=== PATIENT | male | born 1975 | race Caucasian/White ===

== ENCOUNTER 2016-10-28 17:15 | Observation (INO) | payer OTHER ==
[~2016-10-28] VITALS: Ht 175.3 cm; Wt 101.9 kg
--- NOTE | 2016-10-28 17:48 | DIAGNOSTIC IMAGING REPORT ---
PROCEDURE: CT HEAD WITHOUT CONTRAST INDICATION: MENTAL STATUS CHANGE TECHNIQUE: Noncontrast axial images with sagittal and coronal reformations. COMPARISON: None. FINDINGS: Brain and ventricles are normal. No evidence of an acute process or hemorrhage. Sinuses and mastoids are normal. IMPRESSION: 1. Negative head CT. 2. Findings discussed with Dr. Rivera at [address] scans at this facility use dose modulation, iterative reconstruction, and/or weight-based dosing when appropriate to reduce radiation dose to as low as reasonably achievable.
--- NOTE | 2016-10-28 18:10 | DIAGNOSTIC IMAGING REPORT ---
PROCEDURE: XR CHEST 1 VIEW INDICATION: Code stroke. TECHNIQUE: Portable AP view (1750 hours). COMPARISON: None. FINDINGS: Allowing for rotation, and overlying wires and electrodes, lungs are clear. Heart and mediastinum are normal. Thorax is normal. IMPRESSION: 1. Negative chest.
--- NOTE | 2016-10-28 22:05 | ED ORDER SUMMARY ---
..... Patient: MARIA INES MURRAY OrderSheet [facility] VisitID: [id number] [place] [address] 41y, M Registration Date/Time: 10/28/2016 ORDER SHEET Weight: 97.5 kg (stated) Allergies: No Known Drug Allergy GENERAL ORDERS: CT Head wo Cont Urgent (17:29 10/28/2016 LSullivan R.N. verbal order read back to Patricia HUNT) (Ack 17:31 LTapper) (17:43 LSullivan R.N.) Chest 1V Urgent (17:45 10/28/2016 Patricia HUNT) (Ack 17:54 LTapper) (18:55 MCampbell) Gang Leader (Continuous) (17:45 10/28/2016 Patricia HUNT) (18:10 LWhalen R.N.) CBC w Diff Urgent (17:45 10/28/2016 Patricia HUNT) (Ack 17:54 LTapper) (18:10 LWhalen R.N.) CMP Urgent (17:45 10/28/2016 Patricia HUNT) (Ack 17:54 LTapper) (18:10 LWhalen R.N.) UA-Culture if indicated Urgent (17:45 10/28/2016 Patricia HUNT) (Ack 17:54 LTapper) PTT Urgent (17:45 10/28/2016 Patricia HUNT) (Ack 17:54 LTapper) (18:10 LWhalen R.N.) PT with INR Urgent (17:45 10/28/2016 Patricia HUNT) (Ack 17:54 LTapper) (18:10 LWhalen R.N.) Amylase Urgent (17:45 10/28/2016 Patricia HUNT) (Ack 17:54 LTapper) (18:10 LWhalen R.N.) Lipase Urgent (17:45 10/28/2016 Patricia HUNT) (Ack 17:54 LTapper) (18:10 LWhalen R.N.) CPK Urgent (17:45 10/28/2016 Patricia HUNT) (Ack 17:54 LTapper) (18:10 LWhalen R.N.) Troponin-I Urgent (17:45 10/28/2016 Patricia HUNT) (Ack 17:54 LTapper) (18:10 LWhalen R.N.) BNP Urgent (17:45 10/28/2016 Patricia HUNT) (Ack 17:54 LTapper) (18:10 LWhalen R.N.) Oxygen (2 L/min) (NC) (17:45 10/28/2016 Patricia HUNT) (18:10 LWhalen R.N.) Pulse oximeter (17:45 10/28/2016 Patricia HUNT) (18:10 LWhalen R.N.) EKG - ER Stat (17:45 10/28/2016 Patricia HUNT) (17:[facility] TSH Urgent (18:28 10/28/2016 Patricia HUNT) (Ack 18:33 LTapper) MEDICATION ORDERS: Meclizine PO 25 mg (NOW) (18:36 10/28/2016 Patricia HUNT) (19:47 DBeyer R.N.) Aspirin PO 325 mg (NOW) (19:57 10/28/2016 Patricia HUNT) (20:20 DBeyer R.N.) IV FLUIDS: Zofran IV 4 mg (NOW) (17:38 10/28/2016 LSullivan R.N. verbal order read back to Patricia HUNT) (17:40 LSullivan R.N.) IV Saline Lock (17:39 10/28/2016 LSullivan R.N. verbal order read back to Patricia HUNT) (17:40 LSullivan R.N.) IV Saline Lock (17:45 10/28/2016 Patricia HUNT) (18:10 LWhalen R.N.) IV NS with Normal Saline 1 Liter: initial bolus none -, then 1000 mL/hr for X1 (NOW) (18:13 10/28/2016 LSullivan R.N. verbal order read back to Patricia HUNT) (18:16 LSullivan R.N.) Protonix IVP 40mg 40 mg (Mix in NS 10ml over 2min) (20:22 10/28/2016 DBeyer R.N. verbal order read back to Patricia HUNT) (20:34 DBeyer R.N.) Zithromax IV 500 mg/250 mL (NOW) (22:02 10/28/2016 Patricia HUNT) (22:54 Marley Ventura) ORDER SHEET NOTES: [Electronically signed by Brendan Leonard R.N. (06:05 10/29/2016)] [Electronically signed by Nikolay Rivera MD (15:50 10/29/2016)] [Electronically locked/signed by Brendan Leonard R.N. (06:05 10/29/2016)]
--- NOTE | 2016-10-28 22:05 | ED NURSING NOTES ---
Clinical Report - Nurses [facility] [address] [place] [address] 10/28/2016 17:19 Patient: MARIA INES MURRAY TRIAGE Triage time 17:23. Chief Complaint: WEAKNESS, NUMBNESS and DIFFICULTY WALKING and (left side of face). 17:23 10/28/16. --17:23 Beatriz Benjamin R.N. Acuity: LEVEL 3. 17:26 10/28/16. Alert. --17:26 Beatriz Benjamin R.N. 17:30 10/28/16. ( TO CT). --17:30 Beatriz Benjamin R.N. 17:30 10/28/16. BP: 165/100. --17:30 Beatriz Benjamin R.N. 17:46 10/28/16. BP: 165/100. HR: 58. RR: 18. O2 saturation: 94%. Temp: 97.4 F. Pain level now: 810. Additional comments: "sinus headache". --17:48 Beatriz Benjamin R.N. Weight: 97.5 kg stated. Height/Length: 69 inches Per Patient. BMI: 31.8. --17:26 Beatriz Benjamin R.N. Medications Percocet Oral 5/325 mg, 4x a day as needed, back pain. --17:26 Beatriz Benjamin R.N. Allergies No Known Drug Allergy. --17:28 Beatriz Benjamin R.N. History Arrived by private vehicle. Historian: patient. Accompanied by family. --17:23 Beatriz Benjamin R.N. This started today. --17:25 Beatriz Benjamin R.N. ( CODE STROKE CALLED). --17:26 Beatriz Benjamin R.N. SOCIAL HX: Never smoker. Occasional alcohol use. No drug use. The patient was not exposed to MRSA. --17:30 Beatriz Benjamin R.N. 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 (and Advil). --17:31 Beatriz Benjamin R.N. ( states pt was just diagnosed with sinusitis, and had not started antibiotic yet, Amoxicillin for it.). --17:46 Beatriz Benjamin R.N. PROBLEMS: Bulging discs x 2. Bursitis right hip. Back Pain. --17:44 Beatriz Benjamin R.N. ADDITIONAL SURGERIES: Hernia Repair. --17:44 Beatriz Benjamin R.N. Sinus Surgery. --17:45 Beatriz Benjamin R.N. Interventions ID band on patient. To room. --17:26 Beatriz Benjamin R.N. PHYSICAL ASSESSMENT 17:41 10/28/16. GENERAL / NEURO / PSYCH: Decreased awareness. Mood/affect abnormal. --17:41 Beatriz Benjamin R.N. 17:46 10/28/16. GENERAL / NEURO / PSYCH: No motor deficit. ( Pt states he had "some chest pain" for 2 days). --17:46 Beatriz Benjamin R.N. NURSING PROGRESS NOTES 17:25 10/28/2016 Site #1 started via IV in the left hand with an 20g angiocath, with aseptic technique and good blood return; one attempt. Blood drawn: rainbow set. Labeled in the presence of the patient and sent to the lab. Saline lock flushed with 10 mL saline (started by HENRI Cui). --17:40 Beatriz Benjamin R.N. 17:35 10/28/2016 Zofran (Ondansetron HCl) IVP 4 mg given over 1 minute(s) via site #1. Allergies verified and confirmed 5 rights. (given in CT room). --17:40 Beatriz Benjamin R.N. 17:42 10/28/16. surveillance monitor, pulse oximeter and NIBP monitor placed on patient; monitoring manager- Lead II and V1; monitor alarms on. Patient identifiers checked. Call light placed in reach. Bed placed in lowest position. Brakes of bed on. Patient ready for evaluation. --17:42 Beatriz Benjamin R.N. EKG time: (6538). EKG was performed by a tech and shown to the ED physician. --17:50 Jenn Sykes 17:45 10/28/2016 Started bag #1 1000 mL IV Fluids IV NS (Saline); at 999 mL/hr via site #1 via IV pump. Confirmed 5 rights. --18:16 Beatriz Benjamin R.N. Care transferred and report received. ( report received from beatriz). --19:37 Brendan Leonard R.N. 19:37 10/28/16. HR: 53. O2 saturation: 99%. --19:37 Brendan Leonard R.N. 19:47 10/28/2016 Meclizine PO 25 mg given. Allergies verified, confirmed 5 rights and sedative warning given to the patient. --19:47 Brendan Leonard R.N. 19:47 10/28/2016 IV Fluids IV NS Discontinued: bag #1 completed. Total amount infused: 1000 mL. IV patency established. IV site checked: no pain, redness, or swelling. IV flushed thoroughly. --19:47 Brendan Leonard R.N. ( Pt attempted ambulation, was unsteady on his feet but able to walk with assistance.). --20:00 Brendan Leonard R.N. 19:59 10/28/16. BP: 132/66. HR: 60. O2 saturation: 96%. --20:00 Brendan Leonard R.N. <<STRICKEN ENTRY-- 20:20 10/28/2016 Aspirin PO 325 mg given. --20:20 Brendan Leonard R.N. --END STRIKE>> Correction. --20:20 Brendan Leonard R.N. 20:20 10/28/2016 Aspirin PO 325 mg given. Allergies verified and confirmed 5 rights. --20:20 Brendan Leonard R.N. 20:29 10/28/2016 PROTONIX (Pantoprazole Sodium) IVP 40 mg given over 10 minute(s) via site #1. Allergies verified and confirmed 5 rights. IV patency established. IV site checked: no pain, redness, or swelling. IV flushed thoroughly pre- and post-medication administration. IVP given by RN. --20:34 Brendan Leonard R.N. 21:41 10/28/16. BP: 135/81. HR: 62. O2 saturation: 94%. --21:42 Brendan Leonard R.N. 21:58 10/28/16. BP: 116/70. HR: 56. O2 saturation: 94%. --21:59 Brendan Leonard R.N. 22:54 10/28/2016 Started 250 mg of Zithromax (Azithromycin) IVPB in bag #1 250 mL; at 255 mL/hr over 1 hour(s) via site #1 via IV pump. Allergies verified and confirmed 5 rights. IV patency established. IV site checked: no pain, redness, or swelling. IV flushed thoroughly pre- and post-medication administration. --22:54 Brendan Leonard R.N. 23:02 10/28/2016 Site #[address] upon admission. Good blood return present. --23:02 Brendan Leonard R.N. DISPOSITION / DISCHARGE 22:58 10/28/16. BP: 130/78. HR: 61. RR: 20. O2 saturation: 96%. Temp: 98.4 F. Pain level now 5/10. --22:59 Brendan Leonard R.N. 22:58 10/28/16. Admitted to Acute Care. Report was given to a nurse via a phone call. All questions were answered. Report was acknowledged. ( Pt verbalized understanding of admission, GCS 15 at time of admission). --06:04 Brendan Leonard R.N. Locked/Released at 10/29/2016 6:05 by Brendan Leonard R.N.
--- NOTE | 2016-10-28 22:05 | ED CLINICAL REPORT ---
Clinical Report - Physicians/Mid Levels [facility] [address] [place] [address] 10/28/2016 17:19 [id number] Time Seen: 17:44. Arrived- By private vehicle. Historian- patient. History limited by vague historian. Physical Exam limited by poor cooperation. HISTORY OF PRESENT ILLNESS Chief Complaint: DIZZINESS and VERTIGO (ROOM). This started today and is still present. It was abrupt in onset and has been constant. Severity described as severe at its maximum. When seen in the E.D., severity described as severe. Described as a sense of rotation and movement, sense of falling and feeling off balance and light-headed. Not described as a sense of confusion. The patient has had nausea and vomiting. No hearing loss, tinnitus or ear pain. Similar symptoms previously: None. Recent medical care: The patient was seen recently at another facility in a clinic. Diagnosis: (sinusitis). ( he received a prescription for amoxicillin but has not yet started this.). REVIEW OF SYSTEMS The patient has had numbness of the left face (mild), (with pain). No chills, fever, abdominal pain, black stools or bloody stools. No constipation, diarrhea or urinary problems. He has experienced sweats. He complains of moderate, sharp, pleuritic central chest pain (since 2 days ago), currently moderate, described as radiating to the left arm. He has had palpitations (for 2 days). All systems otherwise negative, except as recorded above. PAST HISTORY ( PCP - Dr. Delong at [facility]). Problems: Bulging discs x 2. Bursitis right hip. Back Pain. Additional Surgeries: Hernia Repair. Sinus Surgery. Medications: Topiramate Oral. Percocet Oral 5/325 mg, 4x a day as needed, back pain. Allergies: No Known Drug Allergy. SOCIAL HISTORY Never smoker. No alcohol use or drug use. He lives with spouse. FAMILY HISTORY Diabetes in grandparent; cancer in first-degree relative (mother). ADDITIONAL NOTES The nursing notes have been reviewed. PHYSICAL EXAM Vital Signs: 10/28/2016 17:46 BP: 165/100. HR: 58. RR: 18. O2 saturation: 94%. Temp: 97.4 F. Pain level now: 06/01. 10/28/2016 17:30 BP: 165/100. Have been reviewed. Appearance: Alert. Eyes: Pupils equal, round and reactive to light. No nystagmus. Extraocular movements normal. ENT: Normal ENT inspection. TM's normal. Moist mucous membranes. Pharynx normal. Neck: Normal inspection. Neck supple. No meningeal signs or carotid bruit. CVS: Normal heart rate and rhythm. Heart sounds normal. Respiratory: No respiratory distress. Breath sounds normal. Abdomen: Soft and nontender. No organomegaly. Obese. Back: Normal inspection. Skin: Skin warm and dry. Normal skin color. Normal skin turgor. Extremities: Extremities exhibit normal ROM. No calf tenderness. No lower extremity edema. Neuro: Alert. The patient is disoriented to time. Cranial nerves normal (as tested). Abnormal gait due to mild ataxia. No motor deficit. No sensory deficit. LABS, X-RAYS, AND EKG EKG: No acute process. Rate: 59. Prior EKG unavailable. The study has been independently viewed by me. Chest X-ray: Normal Chest X-Ray. CT Head: (IMPRESSION: 1. Negative head CT.). The study was interpreted by the radiologist and contemporaneously by me. Laboratory Tests: CBC w Diff: (CECI: 10/28/2016 17:25) ( MsgRcvd 10/28/2016 17:53) Final results Test Result Flag Units (Reference) WHITE BLOOD COUNT 12.5 H K/uL (4.5-11.5) RED BLOOD COUNT 5.71 M/uL (4.50-5.90) HEMOGLOBIN 16.7 gm/dL (13.5-17.5) HEMATOCRIT 50.6 % (41.0-53.0) MEAN CELL VOLUME 89 fL (80-100) MEAN CORPUSCULAR HGB 29 pg (26-34) MEAN CORPUSCULAR HGB CONC 33 g/dL (31-37) RED CELL DISTRIBUTION WIDTH 12.9 % (11.6-14.8) PLATELET COUNT 306 K/uL (150-400) NEUTROPHIL % 56.1 % (50-75) LYMPH % 33.7 % (25-40) MONO % 8.8 % (3-14) EOSINOPHIL % 0.7 % (0-4) BASOPHIL % 0.7 % (0-2) PT with INR: (CECI: 10/28/2016 17:25) ( [facility] 10/28/2016 17:59) Final results Test Result Flag Units (Reference) INR 1.0 (0.8-1.2) Low Intensity Therapy: INR 1.5-2.0 PT range 18.5-23.1Mod.Intensity Therapy: INR 2.0-3.0 PT range 23.1-31.5High Intensity Therapy: INR 2.5-3.5 PT range 27.4-35.5High Intensity Therapy 2: INR 3.0-4.0 PT range 31.5-39.3 APTT 25 SECONDS (24-34) TSH: (CECI: 10/28/2016 17:25) ( [facility] 10/28/2016 19:01) Final results Test Result Flag Units (Reference) THYROID STIMULATING HORMONE 0.440 uIU/mL (0.34-3.74) BNP: (CECI: 10/28/2016 17:25) ( [facility] 10/28/2016 18:16) Final results Test Result Flag Units (Reference) B-TYPE NATRIURETIC PEPTIDE < 5.0 L pg/ml (5-100) CMP: (CECI: 10/28/2016 17:25) ( [facility] 10/28/2016 18:10) Final results Test Result Flag Units (Reference) GLUCOSE 164 H mg/dL (70-110) BUN 25 H mg/dL (7-18) CREATININE 1.2 mg/dL (0.6-1.3) Estimated GFR >60 mL/min Estimated GFR- >60 mL/min Note: Persistent reduction over 3 months in eGFR<60 mL/min/1.73 m2 defines CKD. Patients with eGFR values>=60 mL/min/1.73 m2 may also have CKD if evidence ofpersistent proteinuria. Additional information may be foundat www.kidney.org. SODIUM 141 mmol/L (136-145) POTASSIUM 3.5 mmol/L (3.5-5.1) CHLORIDE 107 mmol/L (98-107) CARBON DIOXIDE 22 mmol/L (21-32) CALCIUM 9.1 mg/dL (8.5-10.1) TOTAL PROTEIN 7.4 g/dL (6.4-8.2) ALBUMIN 4.0 g/dL (3.3-5.0) BILIRUBIN, TOTAL 0.5 mg/dL (0.0-1.0) ALKALINE PHOSPHATASE 51 U/L (46-116) AST (SGOT) 26 U/L (15-37) ALT (SGPT) 63 U/L (12-78) LIPASE 122 U/L (73-393) AMYLASE 59 U/L (25-115) CPK 72 U/L (24-260) TROPONIN I <0.05 L ng/mL (0.00-1.5) TROPONIN REFERENCE RANGE:<0.1 NEGATIVE0.1-1.5 INDETERMINANT>1.5 POSITIVE . PROGRESS AND PROCEDURES Course of Care: Walk test was attempted with the patient. Staff assisted him. He would list to the left when ambulating. However he was able to stand without difficulty.Given that he had no improvement, I spoke with Dr. Steinberg, the education teacher physician and reviewed his history and exam findings. We will admit the patient for observation and will obtain an MRI in the AM. Patient is stable. The patient's symptoms are unchanged. Vital signs have been reviewed. Physical exam findings are unchanged. Discussed case with on-call health care provider, (Sp Delong). Reviewed test results and need for additional work-up. Agreed upon treatment plan and need for patient follow-up. Health care provider will see patient in office. Consult obtained. Dr. Steinberg - he saw the patient in the emergency room. Case discussed. Consultation performed in ED. Patient/family counseled. Old medical records ordered. Disposition: Admitted. Observation. Condition: stable. CLINICAL IMPRESSION Vertigo of unknown cause. Possible nontraumatic cerebrovascular accident. INSTRUCTIONS No driving or operating machinery while taking medication. Sedative medication was given during your visit. (Electronically signed by Nikolay Rivera MD 10/29/2016 15:50)
--- NOTE | 2016-10-28 22:05 | ED ORDER SUMMARY ---
..... Patient: MARIA INES MURRAY OrderSheet [facility] VisitID: [id number] [place] [address] 41y, M Registration Date/Time: 10/28/2016 ORDER SHEET Weight: 97.5 kg (stated) Allergies: No Known Drug Allergy GENERAL ORDERS: CT Head wo Cont Urgent (17:29 10/28/2016 LSullivan R.N. verbal order read back to Patricia HUNT) (Ack 17:31 LTapper) (17:43 LSullivan R.N.) Chest 1V Urgent (17:45 10/28/2016 Patricia HUNT) (Ack 17:54 LTapper) (18:55 MCampbell) Pigment Presser (Continuous) (17:45 10/28/2016 Patricia HUNT) (18:10 LWhalen R.N.) CBC w Diff Urgent (17:45 10/28/2016 Patricia HUNT) (Ack 17:54 LTapper) (18:10 LWhalen R.N.) CMP Urgent (17:45 10/28/2016 Patricia HUNT) (Ack 17:54 LTapper) (18:10 LWhalen R.N.) UA-Culture if indicated Urgent (17:45 10/28/2016 Patricia HUNT) (Ack 17:54 LTapper) PTT Urgent (17:45 10/28/2016 Patricia HUNT) (Ack 17:54 LTapper) (18:10 LWhalen R.N.) PT with INR Urgent (17:45 10/28/2016 Patricia HUNT) (Ack 17:54 LTapper) (18:10 LWhalen R.N.) Amylase Urgent (17:45 10/28/2016 Patricia HUNT) (Ack 17:54 LTapper) (18:10 LWhalen R.N.) Lipase Urgent (17:45 10/28/2016 Patricia HUNT) (Ack 17:54 LTapper) (18:10 LWhalen R.N.) CPK Urgent (17:45 10/28/2016 Patricia HUNT) (Ack 17:54 LTapper) (18:10 LWhalen R.N.) Troponin-I Urgent (17:45 10/28/2016 Patricia HUNT) (Ack 17:54 LTapper) (18:10 LWhalen R.N.) BNP Urgent (17:45 10/28/2016 Patricia HUNT) (Ack 17:54 LTapper) (18:10 LWhalen R.N.) Oxygen (2 L/min) (NC) (17:45 10/28/2016 Patricia HUNT) (18:10 LWhalen R.N.) Pulse oximeter (17:45 10/28/2016 Patricia HUNT) (18:10 LWhalen R.N.) EKG - ER Stat (17:45 10/28/2016 Patricia HUNT) ([facility] TSH Urgent (18:28 10/28/2016 Patricia HUNT) (Ack 18:33 LTapper) MEDICATION ORDERS: Meclizine PO 25 mg (NOW) (18:36 10/28/2016 Patricia HUNT) (19:47 DBeyer R.N.) Aspirin PO 325 mg (NOW) (19:57 10/28/2016 Patricia HUNT) (20:20 DBeyer R.N.) IV FLUIDS: Zofran IV 4 mg (NOW) (17:38 10/28/2016 LSullivan R.N. verbal order read back to Patricia HUNT) (17:40 LSullivan R.N.) IV Saline Lock (17:39 10/28/2016 LSullivan R.N. verbal order read back to Patricia HUNT) (17:40 LSullivan R.N.) IV Saline Lock (17:45 10/28/2016 Patricia HUNT) (18:10 LWhalen R.N.) IV NS with Normal Saline 1 Liter: initial bolus none -, then 1000 mL/hr for X1 (NOW) (18:13 10/28/2016 LSullivan R.N. verbal order read back to Patricia HUNT) (18:16 LSullivan R.N.) Protonix IVP 40mg 40 mg (Mix in NS 10ml over 2min) (20:22 10/28/2016 DBeyer R.N. verbal order read back to Patricia HUNT) (20:34 DBeyer R.N.) Zithromax IV 500 mg/250 mL (NOW) (22:02 10/28/2016 Patricia HUNT) (22:54 Marley Ventura) ORDER SHEET NOTES: [Electronically signed by Brendan Leonard R.N. (06:05 10/29/2016)] [Electronically signed by Nikolay Rivera MD (15:50 10/29/2016)] [Electronically locked/signed by Brendan Leonard R.N. (06:05 10/29/2016)]
--- NOTE | 2016-10-28 22:05 | ED NURSING NOTES ---
Clinical Report - Nurses [facility] [address] [place] [address] 10/28/2016 17:19 Patient: MARIA INES MURRAY TRIAGE Triage time 17:23. Chief Complaint: WEAKNESS, NUMBNESS and DIFFICULTY WALKING and (left side of face). 17:23 10/28/16. --17:23 Beatriz Benjamin R.N. Acuity: LEVEL 3. 17:26 10/28/16. Alert. --17:26 Beatriz Benjamin R.N. 17:30 10/28/16. ( TO CT). --17:30 Beatriz Benjamin R.N. 17:30 10/28/16. BP: 165/100. --17:30 Beatriz Benjamin R.N. 17:46 10/28/16. BP: 165/100. HR: 58. RR: 18. O2 saturation: 94%. Temp: 97.4 F. Pain level now: 810. Additional comments: "sinus headache". --17:48 Beatriz Benjamin R.N. Weight: 97.5 kg stated. Height/Length: 69 inches Per Patient. BMI: 31.8. --17:26 Beatriz Benjamin R.N. Medications Percocet Oral 5/325 mg, 4x a day as needed, back pain. --17:26 Beatriz Benjamin R.N. Allergies No Known Drug Allergy. --17:28 Beatriz Benjamin R.N. History Arrived by private vehicle. Historian: patient. Accompanied by family. --17:23 Beatriz Benjamin R.N. This started today. --17:25 Beatriz Benjamin R.N. ( CODE STROKE CALLED). --17:26 Beatriz Benjamin R.N. SOCIAL HX: Never smoker. Occasional alcohol use. No drug use. The patient was not exposed to MRSA. --17:30 Beatriz Benjamin R.N. 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 (and Advil). --17:31 Beatriz Benjamin R.N. ( states pt was just diagnosed with sinusitis, and had not started antibiotic yet, Amoxicillin for it.). --17:46 Beatriz Benjamin R.N. PROBLEMS: Bulging discs x 2. Bursitis right hip. Back Pain. --17:44 Beatriz Benjamin R.N. ADDITIONAL SURGERIES: Hernia Repair. --17:44 Beatriz Benjamin R.N. Sinus Surgery. --17:45 Beatriz Benjamin R.N. Interventions ID band on patient. To room. --17:26 Beatriz Benjamin R.N. PHYSICAL ASSESSMENT 17:41 10/28/16. GENERAL / NEURO / PSYCH: Decreased awareness. Mood/affect abnormal. --17:41 Beatriz Benjamin R.N. 17:46 10/28/16. GENERAL / NEURO / PSYCH: No motor deficit. ( Pt states he had "some chest pain" for 2 days). --17:46 Beatriz Benjamin R.N. NURSING PROGRESS NOTES 17:25 10/28/2016 Site #1 started via IV in the left hand with an 20g angiocath, with aseptic technique and good blood return; one attempt. Blood drawn: rainbow set. Labeled in the presence of the patient and sent to the lab. Saline lock flushed with 10 mL saline (started by HERNI Cui). --17:40 Beatriz Benjamin R.N. 17:35 10/28/2016 Zofran (Ondansetron HCl) IVP 4 mg given over 1 minute(s) via site #1. Allergies verified and confirmed 5 rights. (given in CT room). --17:40 Beatriz Benjamin R.N. 17:42 10/28/16. starcher and tenter range feeder, pulse oximeter and NIBP monitor placed on patient; research environmental scientist- Lead II and V1; monitor alarms on. Patient identifiers checked. Call light placed in reach. Bed placed in lowest position. Brakes of bed on. Patient ready for evaluation. --17:42 Beatriz Benjamin R.N. EKG time: (9658). EKG was performed by a tech and shown to the ED physician. --17:50 Jenn Sykes 17:45 10/28/2016 Started bag #1 1000 mL IV Fluids IV NS (Saline); at 999 mL/hr via site #1 via IV pump. Confirmed 5 rights. --18:16 Beatriz Benjamin R.N. Care transferred and report received. ( report received from beatriz). --19:37 Brendan Loenard R.N. 19:37 10/28/16. HR: 53. O2 saturation: 99%. --19:37 Brendan Leonard R.N. 19:47 10/28/2016 Meclizine PO 25 mg given. Allergies verified, confirmed 5 rights and sedative warning given to the patient. --19:47 Brendan Leonard R.N. 19:47 10/28/2016 IV Fluids IV NS Discontinued: bag #1 completed. Total amount infused: 1000 mL. IV patency established. IV site checked: no pain, redness, or swelling. IV flushed thoroughly. --19:47 Brendan Leonard R.N. ( Pt attempted ambulation, was unsteady on his feet but able to walk with assistance.). --20:00 Brendan Leonard R.N. 19:59 10/28/16. BP: 132/66. HR: 60. O2 saturation: 96%. --20:00 Brendan Leonard R.N. <<STRICKEN ENTRY-- 20:20 10/28/2016 Aspirin PO 325 mg given. --20:20 Brendan Leonard R.N. --END STRIKE>> Correction. --20:20 Brendan Leonard R.N. 20:20 10/28/2016 Aspirin PO 325 mg given. Allergies verified and confirmed 5 rights. --20:20 Brendan Leonard R.N. 20:29 10/28/2016 PROTONIX (Pantoprazole Sodium) IVP 40 mg given over 10 minute(s) via site #1. Allergies verified and confirmed 5 rights. IV patency established. IV site checked: no pain, redness, or swelling. IV flushed thoroughly pre- and post-medication administration. IVP given by RN. --20:34 Brendan Leonard R.N. 21:41 10/28/16. BP: 135/81. HR: 62. O2 saturation: 94%. --21:42 Brendan Leonard R.N. 21:58 10/28/16. BP: 116/70. HR: 56. O2 saturation: 94%. --21:59 Brendan Leonard R.N. 22:54 10/28/2016 Started 250 mg of Zithromax (Azithromycin) IVPB in bag #1 250 mL; at 255 mL/hr over 1 hour(s) via site #1 via IV pump. Allergies verified and confirmed 5 rights. IV patency established. IV site checked: no pain, redness, or swelling. IV flushed thoroughly pre- and post-medication administration. --22:54 Brendan Leonard R.N. 23:02 10/28/2016 Site #[address] upon admission. Good blood return present. --23:02 Brendan Leonard R.N. DISPOSITION / DISCHARGE 22:58 10/28/16. BP: 130/78. HR: 61. RR: 20. O2 saturation: 96%. Temp: 98.4 F. Pain level now 5/10. --22:59 Brendan Leonard R.N. 22:58 10/28/16. Admitted to Acute Care. Report was given to a nurse via a phone call. All questions were answered. Report was acknowledged. ( Pt verbalized understanding of admission, GCS 15 at time of admission). --06:04 Brendan Leonard R.N. Locked/Released at 10/29/2016 6:05 by Brendan Leonard R.N.
--- NOTE | 2016-10-28 22:05 | ED CLINICAL REPORT ---
Clinical Report - Physicians/Mid Levels [facility] [address] [place] [address] 10/28/2016 17:19 [id number] Time Seen: 17:44. Arrived- By private vehicle. Historian- patient. History limited by vague historian. Physical Exam limited by poor cooperation. HISTORY OF PRESENT ILLNESS Chief Complaint: DIZZINESS and VERTIGO (ROOM). This started today and is still present. It was abrupt in onset and has been constant. Severity described as severe at its maximum. When seen in the E.D., severity described as severe. Described as a sense of rotation and movement, sense of falling and feeling off balance and light-headed. Not described as a sense of confusion. The patient has had nausea and vomiting. No hearing loss, tinnitus or ear pain. Similar symptoms previously: None. Recent medical care: The patient was seen recently at another facility in a clinic. Diagnosis: (sinusitis). ( he received a prescription for amoxicillin but has not yet started this.). REVIEW OF SYSTEMS The patient has had numbness of the left face (mild), (with pain). No chills, fever, abdominal pain, black stools or bloody stools. No constipation, diarrhea or urinary problems. He has experienced sweats. He complains of moderate, sharp, pleuritic central chest pain (since 2 days ago), currently moderate, described as radiating to the left arm. He has had palpitations (for 2 days). All systems otherwise negative, except as recorded above. PAST HISTORY ( PCP - Dr. Delong at [facility]). Problems: Bulging discs x 2. Bursitis right hip. Back Pain. Additional Surgeries: Hernia Repair. Sinus Surgery. Medications: Topiramate Oral. Percocet Oral 5/325 mg, 4x a day as needed, back pain. Allergies: No Known Drug Allergy. SOCIAL HISTORY Never smoker. No alcohol use or drug use. He lives with spouse. FAMILY HISTORY Diabetes in grandparent; cancer in first-degree relative (mother). ADDITIONAL NOTES The nursing notes have been reviewed. PHYSICAL EXAM Vital Signs: 10/28/2016 17:46 BP: 165/100. HR: 58. RR: 18. O2 saturation: 94%. Temp: 97.4 F. Pain level now: 06/01. 10/28/2016 17:30 BP: 165/100. Have been reviewed. Appearance: Alert. Eyes: Pupils equal, round and reactive to light. No nystagmus. Extraocular movements normal. ENT: Normal ENT inspection. TM's normal. Moist mucous membranes. Pharynx normal. Neck: Normal inspection. Neck supple. No meningeal signs or carotid bruit. CVS: Normal heart rate and rhythm. Heart sounds normal. Respiratory: No respiratory distress. Breath sounds normal. Abdomen: Soft and nontender. No organomegaly. Obese. Back: Normal inspection. Skin: Skin warm and dry. Normal skin color. Normal skin turgor. Extremities: Extremities exhibit normal ROM. No calf tenderness. No lower extremity edema. Neuro: Alert. The patient is disoriented to time. Cranial nerves normal (as tested). Abnormal gait due to mild ataxia. No motor deficit. No sensory deficit. LABS, X-RAYS, AND EKG EKG: No acute process. Rate: 59. Prior EKG unavailable. The study has been independently viewed by me. Chest X-ray: Normal Chest X-Ray. CT Head: (IMPRESSION: 1. Negative head CT.). The study was interpreted by the radiologist and contemporaneously by me. Laboratory Tests: CBC w Diff: (CECI: 10/28/2016 17:25) ( MsgRcvd 10/28/2016 17:53) Final results Test Result Flag Units (Reference) WHITE BLOOD COUNT 12.5 H K/uL (4.5-11.5) RED BLOOD COUNT 5.71 M/uL (4.50-5.90) HEMOGLOBIN 16.7 gm/dL (13.5-17.5) HEMATOCRIT 50.6 % (41.0-53.0) MEAN CELL VOLUME 89 fL (80-100) MEAN CORPUSCULAR HGB 29 pg (26-34) MEAN CORPUSCULAR HGB CONC 33 g/dL (31-37) RED CELL DISTRIBUTION WIDTH 12.9 % (11.6-14.8) PLATELET COUNT 306 K/uL (150-400) NEUTROPHIL % 56.1 % (50-75) LYMPH % 33.7 % (25-40) MONO % 8.8 % (3-14) EOSINOPHIL % 0.7 % (0-4) BASOPHIL % 0.7 % (0-2) PT with INR: (CECI: 10/28/2016 17:25) ( [facility] 10/28/2016 17:59) Final results Test Result Flag Units (Reference) INR 1.0 (0.8-1.2) Low Intensity Therapy: INR 1.5-2.0 PT range 18.5-23.1Mod.Intensity Therapy: INR 2.0-3.0 PT range 23.1-31.5High Intensity Therapy: INR 2.5-3.5 PT range 27.4-35.5High Intensity Therapy 2: INR 3.0-4.0 PT range 31.5-39.3 APTT 25 SECONDS (24-34) TSH: (CECI: 10/28/2016 17:25) ( [facility] 10/28/2016 19:01) Final results Test Result Flag Units (Reference) THYROID STIMULATING HORMONE 0.440 uIU/mL (0.34-3.74) BNP: (CECI: 10/28/2016 17:25) ( [facility] 10/28/2016 18:16) Final results Test Result Flag Units (Reference) B-TYPE NATRIURETIC PEPTIDE < 5.0 L pg/ml (5-100) CMP: (CECI: 10/28/2016 17:25) ( [facility] 10/28/2016 18:10) Final results Test Result Flag Units (Reference) GLUCOSE 164 H mg/dL (70-110) BUN 25 H mg/dL (7-18) CREATININE 1.2 mg/dL (0.6-1.3) Estimated GFR >60 mL/min Estimated GFR- >60 mL/min Note: Persistent reduction over 3 months in eGFR<60 mL/min/1.73 m2 defines CKD. Patients with eGFR values>=60 mL/min/1.73 m2 may also have CKD if evidence ofpersistent proteinuria. Additional information may be foundat www.kidney.org. SODIUM 141 mmol/L (136-145) POTASSIUM 3.5 mmol/L (3.5-5.1) CHLORIDE 107 mmol/L (98-107) CARBON DIOXIDE 22 mmol/L (21-32) CALCIUM 9.1 mg/dL (8.5-10.1) TOTAL PROTEIN 7.4 g/dL (6.4-8.2) ALBUMIN 4.0 g/dL (3.3-5.0) BILIRUBIN, TOTAL 0.5 mg/dL (0.0-1.0) ALKALINE PHOSPHATASE 51 U/L (46-116) AST (SGOT) 26 U/L (15-37) ALT (SGPT) 63 U/L (12-78) LIPASE 122 U/L (73-393) AMYLASE 59 U/L (25-115) CPK 72 U/L (24-260) TROPONIN I <0.05 L ng/mL (0.00-1.5) TROPONIN REFERENCE RANGE:<0.1 NEGATIVE0.1-1.5 INDETERMINANT>1.5 POSITIVE . PROGRESS AND PROCEDURES Course of Care: Walk test was attempted with the patient. Staff assisted him. He would list to the left when ambulating. However he was able to stand without difficulty.Given that he had no improvement, I spoke with Dr. Steinberg, the economic analyst physician and reviewed his history and exam findings. We will admit the patient for observation and will obtain an MRI in the AM. Patient is stable. The patient's symptoms are unchanged. Vital signs have been reviewed. Physical exam findings are unchanged. Discussed case with on-call health care provider, (Sp Delong). Reviewed test results and need for additional work-up. Agreed upon treatment plan and need for patient follow-up. Health care provider will see patient in office. Consult obtained. Dr. Steinberg - he saw the patient in the emergency room. Case discussed. Consultation performed in ED. Patient/family counseled. Old medical records ordered. Disposition: Admitted. Observation. Condition: stable. CLINICAL IMPRESSION Vertigo of unknown cause. Possible nontraumatic cerebrovascular accident. INSTRUCTIONS No driving or operating machinery while taking medication. Sedative medication was given during your visit. (Electronically signed by Nikolay Rivera MD 10/29/2016 15:50)
--- NOTE | 2016-10-28 22:46 | Progress Note ---
Subjective General Full note dictated: Patient is a 41 y.o male generally healthy other than some chronic neck pain who presented with n/v/dizziness, face numbness L and body numbness right. CT neg, difficulty walking. Plan: admit to the hospital for MRI r/o CVA, IVF, nausea and gerd treatment.
[2016-10-28 23:34] VITALS: BP 151/92
--- NOTE | 2016-10-28 23:59 | HISTORY AND PHYSICAL ---
ADMITTED: 10/28/2016 CHIEF COMPLAINT: 1. Left face numbness 2. Right body numbness 3. Dizziness 4. Nausea 5. Vomiting HISTORY OF PRESENT ILLNESS: The patient states that he awoke at 4:00 today after sleeping for around 16 hours, at which point, he noticed that he was acutely ill with this left face numbness, difficult vision out of the left eye, and right side of his body feeling numb. He was also extremely dizzy and so he went to the emergency department for further evaluation. In the emergency department, a large workup was done, which was essentially negative. His physical examination does have significant nystagmus and he also has the continued issues of numbness. He is being admitted for a rule out cerebrovascular accident. Check on an MRI in the morning and we will also monitor his symptoms and treat his symptoms at this time pending further evaluation. MEDICAL/SURGICAL HISTORY: Past medical history: He has generally been healthy. He sees Dr. Delong at [facility]. He has had some diskitis, bursitis and back pain. Past surgical history: He has had hernia and sinus surgery. MEDICATIONS: 1. Pataday 0.2% ophthalmic solution, 1 drop both eyes daily for allergies. 2. Fluticasone 2 sprays each nostril daily. 3. Methylphenidate 30 mg p.o. daily for attention deficit disorder. 4. Venlafaxine 75 mg p.o. daily for anxiety, depression. 5. Oxycodone 1-2 q.4-6 hours p.r.n. pain. 6. Nexium 1 p.o. daily. 7. Multivitamin p.o. daily. ALLERGIES: 1. NONE. SOCIAL HISTORY: . He does not smoke, does not drink, does not use any drugs. FAMILY HISTORY: Diabetes in grandfather. Mom had thyroid cancer. REVIEW OF SYSTEMS: Notable for the left face numbness, right arm numbness, the left vision difficulty. He is leaning a little bit to the left when he walks, which is new, and difficulty with walking. He has extreme dizziness, nausea, vomiting. No bleeding anywhere. He has a little bit of chest discomfort when you press on his left lower chest. Also, he has bilateral lower leg calf tenderness. PHYSICAL EXAMINATION: GENERAL: He is an alert male who appears to be in [id number] distress. HEENT: His extraocular movements are intact; however, he has got nystagmus both laterally and vertically in movement in any direction. He has got some sinus tenderness, both to the left anterior frontal area, as well as left maxillary region. He has got subjective facial numbness from midline over to the left-hand side, ends up to the cheek from his chin. NECK: Supple without lymphadenopathy, jugular venous distention or bruits. LUNGS: Clear to auscultation bilaterally. HEART: Regular rate and rhythm. No murmur. ABDOMEN: Soft. It is tender to palpation in the left lower abdomen. His left chest also has a little bit of tenderness to palpation. GENITOURINARY: Deferred. RECTAL: Deferred. NEUROLOGIC: His cranial nerves are intact other than as noted. His legs have no edema. He is mildly tender posteriorly in his calves bilaterally. LAB/IMAGING: EKG was normal. Chest x-ray was normal. CT of his head: Normal. Laboratories: White count of 12.5, hematocrit of 50.6 and platelets of 306,000. INR of 1.0. Sodium of 141, potassium 3.5, chloride of 107, HCO3 22, BUN of 25, creatinine 1.2, glucose 164, calcium 9.1, bili 0.5, protein of 7.4. AST of 26, ALT of 63, alk phos 51, albumin 4.0, amylase 59, lipase 122. Creatinine kinase 72. Troponin less than 0.05. BNP less than 5. TSH is 0.440. Urinalysis is unremarkable. IMPRESSION: 1. This is a 41-year-old male who presents with acute onset of left face numbness with some vision changes on the left, difficulty with ambulation and right body numbness. He has also had nystagmus, extreme dizziness, nausea, vomiting. His workup essentially is negative other than his physical examination and he has got enough disability with his inability to walk, etc., that we are going to admit him. Check on an MRI of his brain. He would not be a candidate for TPA as his last known time of being well prior to waking was over 12 hours and time to get in to the emergency department, etc., now it has been well longer than that. With this, he might be having some sinus related issues with tenderness, as well as he may be having vestibulitis with the dizziness causing nausea, etc. there are some other findings including some of the calf tenderness and abdominal discomfort, chest wall tenderness are all a little bit unusual at this point. PLAN: To admit him to the hospital and check on the MRI of his brain and monitor him closely, treat with antiemetics, as well as acid medicines.
--- NOTE | 2016-10-29 00:07 | NUR ---
PT ADMITTED TO 209-B. HE WAS ORIENTED BUT LETHARGIC, UNABLE TO AMBULATE TO BED, WEAK WHEN STANDING TO PIVOT INTO BED. PT C/O NUMBNESS TO LEFT SIDE OF FACE AND WEAKNESS/NUMBNESS TO R UPPER EXTREMITIES. 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 PT C/O HEARTBURN, EMESIS PRESENT. AT BEDSIDE. SHE IS UNSURE OF PT'S HOME MED DOSEAGES AT THIS TIME. BED ALARM ON, PT WILL BE NPO AT THIS TIME. AXYTHROMYCIN BEING GIVEN FROM ED.
[2016-10-29 02:26] VITALS: BP 132/87
--- NOTE | 2016-10-29 02:31 | NUR ---
PT. CARE ASSUMED AT 2300. PT. REPORTS HAVING HEART BURN PAIN, HAD PRN LIQUID PO MEDICATION BUT STATES HE IS CHOKING ON ANYTHING PO. NOTIFIED MD, OKAY TO GIVE PROTONIX EARLY, MAKE NPO AND ORDER SWALLOW EVAL FOR A.M. PATIENT IS ALERT AND ORIENTED, COOPERATIVE WITH CARES. L SIDED WEAKNESS AND FACIAL DROOP. PER BASELINE HAS CHRONIC LOW BACK NERVE PAIN FROM BULGING DISC. PT. UNABLE TO AMBULATE, WAFFLE MATRESS IN PLACE, USES CALL LIGHT APPROPRIATELY AND ABLE TO MAKE NEEDS KNOWN. COUGHING UP CLEAR THIN SPUTUM FREQUENTLY. SCD'S IN PLACE. WCTM
[2016-10-29] MEDS ORDERED: TOPAMAX100 MG PO (02:41)
[2016-10-29] MEDS ORDERED: PERCOCET1 TA1 PO (02:41)
--- NOTE | 2016-10-29 03:13 | NUR ---
CHRISTELLE LICEA IN PLACE, BED ALARM ON, DR. SAMSON AT PATIENT BEDSIDE AT THIS TIME
--- NOTE | 2016-10-29 03:41 | Progress Note ---
Subjective General Called to evaluate patient for change in pupils. Nursing staff had evaluated him and he was with a dilated pupil on the L and facing downward. When I arrived on the floor he was improved on his eval. I then called the [facility] stroke team attending and they have requested that I order a stat CTA of patients brain and neck, give asa rectally, and 1L NS. Patient also is noted to have urinary retention with 540 ml. Physical Exam Vital Signs / I&Os Vital Signs Date Time Temp Pulse Resp B/P Pulse O2 O2 Flow FiO2 Ox Delivery Rate 10/29 0226 98.4 67 18 132/87 93 Room Air 0.0 10/29 0005 Room Air 10/28 2334 98.4 72 20 151/92 94 Room Air 0.0 I&O 10/29 0000 10/28 1600 10/28 0800 Intake Total Output Total 15 Balance -15 General Appearance Alert HEENT patient has some nystagmus, pupils are reactive and eomi, he as some subjective decrease in vision on the L Lungs Clear to auscultation Cardiovascular Regular rate and rhythm LAB Results Laboratory Tests 10/28 10/28 10/28 1725 1725 1725 Chemistry Plasma Sodium (136 - 145 mmol/L) 141 Plasma Potassium (3.5 - 5.1 mmol/L) 3.5 Plasma Chloride (98 - 107 mmol/L) 107 CO2 (Enzymatic) (21 - 32 mmol/L) 22 BUN (7 - 18 mg/dL) 25 Creatinine (0.6 - 1.3 mg/dL) 1.2 Est GFR ( Amer) (mL/min) >60 Est GFR (Non-Af Amer) (mL/min) >60 Glucose (70 - 110 mg/dL) 164 Plasma Calcium (8.5 - 10.1 mg/dL) 9.1 Total Bilirubin (0.0 - 1.0 mg/dL) 0.5 AST (15 - 37 U/L) 26 ALT (12 - 78 U/L) 63 Alkaline Phosphatase (46 - 116 U/L) 51 Creatine Kinase (24 - 260 U/L) 72 Troponin (0.00 - 1.5 ng/mL) <0.05 B-Natriuretic Peptide (5 - 100 pg/ml) < 5.0 Total Protein (6.4 - 8.2 g/dL) 7.4 Albumin (3.3 - 5.0 g/dL) 4.0 Amylase (25 - 115 U/L) 59 Lipase (73 - 393 U/L) 122 TSH 3rd Generation (0.34 - 3.74 uIU/mL) 0.440 Coagulation INR (0.8 - 1.2) 1.0 APTT (24 - 34 SECONDS) 25 Hematology WBC (4.5 - 11.5 K/uL) 12.5 RBC (4.50 - 5.90 M/uL) 5.71 Hgb (13.5 - 17.5 gm/dL) 16.7 Hct (41.0 - 53.0 %) 50.6 MCV (80 - 100 fL) 89 MCH (26 - 34 pg) 29 RDW (11.6 - 14.8 %) 12.9 Neut % (Auto) (50 - 75 %) 56.1 Lymph % (Auto) (25 - 40 %) 33.7 Butler % (Auto) (3 - 14 %) 8.8 Eos % (Auto) (0 - 4 %) 0.7 Baso % (Auto) (0 - 2 %) 0.7 Plt Count, EDTA (150 - 400 K/uL) 306 PUBS MCHC (31 - 37 g/dL) 33 Assessment and Plan Problem List 1. Pupil disorder Plan New change in status with pupil changes now resolved. I have discussed with Dr. Romero and will get a stat CTA head and neck. He has been given a rectal ASA and durbin cath for urinary retention and also 1000 cc NS bolus. 2. Urinary retention Plan durbin cath.
--- NOTE | 2016-10-29 03:57 | NUR ---
PATIENT UNABLE TO VOID, BLADDER SCAN REVEALVED 600 CC, NOTIFIED AND WERNER CATHETER INSERTED, PATIENT TOLERATED WELL. GIVEN ASA SUPPOSITORY AND 1000CC BOLUS OF NS HUNG WIDE OPEN, COMMERCIAL GREEN RETROFIT ARCHITECT STARTED NEW 18G TO RAC, LFA IV NOW SALINE LOCKED AND PATIENT JUST LEFT FLOOR FOR 2ND CT WITH CONTRAST. NOTIFIED OF PATIENT OF POC AND POSSIBLE TRANSFER TO [place], SPOKE WITH AND PLANNING TO COME TO FACILITY. NEENA
[2016-10-29 06:55] VITALS: BP 119/64
[2016-10-29] MEDS ORDERED: FAMOTIDINE10 MG PO (07:39)
--- NOTE | 2016-10-29 08:30 | NUR ---
RECEIVED PT IN BED, LETHARGIC BUT EASILY AROUSED. OREITNED, COHERENT, COOPERATIVE. 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 MEGA TO LIFT BOTH LEGS BUT UNABLE TO AMBULATE. LT SIDED FACIAL DROOP NOTED. PERRLA EQUALLY REACTIVE. MAINTAINED ON NPO. PLAN OF CARE INFORMED PT AND . FOR MRI TODAY. AT 0838, PT WENT TO MRI VIA BED. ASSISTED BY MS DAVIDSON AND TERESA VIA BED.
--- NOTE | 2016-10-29 09:10 | DIAGNOSTIC IMAGING REPORT ---
PROCEDURE: CTA HEAD AND NECK INDICATION: nystagmus TECHNIQUE: 88 ml of Isovue 370 injected intravenously and axial images were obtained from the vertex through the upper mediastinum with 3D sagittal and coronal MIP reconstructions. COMPARISON: Head CT 10/28/2016 FINDINGS: Normal brain parenchyma without evidence of a mass or abnormal enhancement. There is some air in the venous structures of the right side secondary to contrast injection. Mastoids and sinuses are clear. AORTIC ARCH: Normal RIGHT CAROTID SYSTEM: Normal LEFT CAROTID SYSTEM: Normal VERTEBROBASILAR SYSTEM: Normal INTRACRANIAL ANTERIOR CIRCULATION: Normal INTRACRANIAL POSTERIOR CIRCULATION: Normal IMPRESSION: 1. Normal CT of the head and neck 2. Preliminary results submitted by Dr. Dumotn, [facility] radiology pill All CT scans at this facility use dose modulation, iterative reconstruction, and/or weight-based dosing when appropriate to reduce radiation dose to as low as reasonably achievable.
--- NOTE | 2016-10-29 10:08 | NUR ---
PT IS STILL LETHARGIC, BUT AROUSABLE FROM MRI. FOLLOWS COMMANDS. RT ARM IS COLD TO TOUCH.
[2016-10-29 10:09] VITALS: BP 127/82
--- NOTE | 2016-10-29 10:30 | NUR ---
MS ARROYO FROM [facility] CALLED REGARDING MRI RESULTS AND ASKED IF PT HAS A A BED AVAIL, AND TOLD ME THAT HE NEEDS TO GO TO ER IF PT NEEDS TO BE TRANSFERRED. DR BACK NOTIFED AND MS HAMPTON CALLED RADIOLOGY TO SEND MRI RESULTS TO [facility].
--- NOTE | 2016-10-29 11:46 | DIAGNOSTIC IMAGING REPORT ---
PROCEDURE: MR BRAIN W/WO CONTRAST INDICATION: NUMBNESS, VERTIGO, NYSTAGMUS TECHNIQUE: Noncontrast T1 sagittal and T2 coronal images of the brain. T2, FLAIR, gradient and diffusion axial images with ADC map. Pregadolinium thin-cut T1 sagittal and coronal images of the pituitary fossa. Following 19 ml of intravenous gadolinium, thin-cut T1 sagittal and coronal images of the pituitary fossa were obtained followed by FAT-SAT T1 axial images of the brain. COMPARISON: Head CTA 10/29/[address] 10/28/2016. FINDINGS: DWI sequence demonstrates a 4 x 2.5 cm left cerebellar acute CVA. There is no evidence of hemorrhage, mass effect or enhancement. Sulci and ventricular system are normal. Normal vascular flow voids. Normal orbits. Mastoids and sinuses are clear. IMPRESSION: 1. Acute left cerebellar CVA without hemorrhage, mass effect or enhancement. 2. Results discussed with Dr. Gamez
--- NOTE | 2016-10-29 12:08 | NUR ---
MR JHONNY CURT LAZO CALLED AND GAVE A BRIEF REPORT REGADRDING PT. AND INFORMED HIM THAT AMBULANCE WILL TRANPORT PT AT 1220 AND HE FAXED A ED FORM AND WAS INTRUCTED TO TAKE IT WITH THE PT'S [employer]KS.
--- NOTE | 2016-10-29 12:09 | Provider's Discharge Care Plan ---
Problem, Goal, Plan Problem List 1. Cerebellar stroke, acute Goals: Diagnostic testing, Improve disease control, Improve function, Improved health/wellness, Therapeutic intervention Instructions: TRANSFER VIA AMBULANCE to [facility] ER. to care of Dr. Romero and Dr. Loza.
--- NOTE | 2016-10-29 12:09 | Provider's Discharge Care Plan ---
Problem, Goal, Plan Problem List 1. Cerebellar stroke, acute Goals: Diagnostic testing, Improve disease control, Improve function, Improved health/wellness, Therapeutic intervention Instructions: TRANSFER VIA AMBULANCE to [facility] ER. to care of Dr. Romero and Dr. Loza.
--- NOTE | 2016-10-29 12:31 | NUR ---
PT WAS ABLE TO FOLLOW SIMPLE COMMANDS. LETHARGIC BUT ABLE TO RAISE BOTH ARMS, BOTH LEGS, EYES BOTH REACTIVE TO LIGHT. PT WENT TO [facility] VIA AMBULANCE, REPORT GIVEN TO MS JABIER BA, OF [facility] AT 1240.
--- NOTE | 2016-10-29 15:51 | ED MAR SUMMARY ---
..... Medication Administration Record [facility] [address] [place] [address] Patient: MARIA INES MURRAY Visit ID: [id number] 41y, M Weight: 97.5 kg Height/Length: 69 in BMI: 31.8 ALLERGIES: No Known Drug Allergy Given 17:35 10/28/2016 Beatriz Benjamin R.N. Medication Administered: ZOFRAN [IVP] (ONDANSETRON HCL), Dose: 4 mg IVP over 1 minute(s), Site: #1 left hand. Medication Ordered: Zofran IV 4 mg (NOW). Start 17:45 10/28/2016 Beatriz Benjamin R.N., Stop 19:47 10/28/2016 Brendan Leonard R.N. Medication Administered: IV NS (SALINE), Dose: IV Fluids, Rate: 999 mL/hr, Dispensed: 1000 mL bag, Site: #1 left hand. Medication Ordered: IV NS with Normal Saline 1 Liter: initial bolus none -, then 1000 mL/hr for X1 (NOW). Given 19:47 10/28/2016 Brendan Leonard R.N. Medication Administered: MECLIZINE [PO], Dose: 25 mg PO. Medication Ordered: Meclizine PO 25 mg (NOW). Given 20:20 10/28/2016 Brendan Leonard R.N. Medication Administered: ASPIRIN [PO], Dose: 325 mg PO. Medication Ordered: Aspirin PO 325 mg (NOW). Given 20:29 10/28/2016 Brendan Leonard R.N. Medication Administered: PROTONIX [IVP] (PANTOPRAZOLE SODIUM), Dose: 40 mg IVP over 10 minute(s), Site: #1 left hand. Medication Ordered: Protonix IVP 40mg 40 mg (Mix in NS 10ml over 2min). Start 22:54 10/28/2016 Brendan Leonard R.N. Medication Administered: ZITHROMAX [IVPB] (AZITHROMYCIN), Dose: 250 mg IVPB over 1 hour(s), Rate: 255 mL/hr, Dispensed: 250 mL bag, Site: #1 left hand. Medication Ordered: Zithromax IV 500 mg/250 mL (NOW).
--- NOTE | 2016-10-29 15:51 | ED MED RECONCILIATION SUMMARY ---
Patient: MARIA INES MURRAY Medication Reconciliation Report [facility] VisitID: [id number] [place] [address] 41y, M Registration Date/Time: 10/28/2016 Weight: 97.5 kg Height/Length: 69 in. BMI: 31.8 ALLERGIES: No Known Drug Allergy The patient's Home Medications are listed below: THE FOLLOWING MEDICATIONS NEED TO BE RECONCILED: Percocet Oral 5/325 mg, 4x a day, back pain Topiramate Oral The source(s) of the original Home Medication information: Not obtained. The following Medications were given to the patient in the Emergency Department: Zofran [IVP] IVP 4 mg, administered: 10/28/2016 5:35:00 PM IV NS IV Fluids bolus 0, then 999 mL/hr, administered: 10/28/2016 5:45:00 PM Meclizine [PO] PO 25 mg, administered: 10/28/2016 7:47:00 PM Aspirin [PO] PO 325 mg, administered: 10/28/2016 8:20:00 PM PROTONIX [IVP] IVP 40 mg, administered: 10/28/2016 8:29:00 PM Zithromax [IVPB] IVPB bolus 0, then 250 mg 255 mL/hr, administered: 10/28/2016 10:54:00 PM The following Medications were prescribed to the patient: None.
--- NOTE | 2016-10-29 15:51 | ED DISCHARGE INSTRUCTIONS ---
Patient: MARIA INES MURRAY General Instructions [facility] VisitID: [id number] [place] [address] 41y, M Registration Date/Time: 10/28/2016 Vertigo of unknown cause. INSTRUCTIONS No driving or operating machinery while taking medication. Sedative medication was given during your visit. ADDITIONAL INFORMATION Vertigo [Unknown Cause] The "inner ear" is located behind the middle ear. It is part of the balance center of your body. Disease of the inner ear causes vertigo -- a false feeling of motion. It feels as if you or the room is spinning. A vertigo attack may cause sudden nausea, vomiting and heavy sweating. Severe vertigo causes a loss of balance and can cause you to fall. During vertigo, small head movements and changes in body position will often make the symptoms worse. The causes of vertigo include: Inflammation of the inner ear Disease of the nerves to the inner ear Movement of calcium particles in the inner ear Poor blood flow to the balance centers of the brain An episode of vertigo may last seconds, minutes or hours. Once you are over the first episode, it may never return. However, sometimes symptoms may recur off and on over several weeks or longer, depending on the cause. There may be ringing in the ears or hearing loss, which may be temporary or permanent. Home Care: If symptoms are severe, rest quietly in bed. Change positions very slowly. There is usually one position that will feel best, such as lying on one side or lying on your back with your head slightly raised on pillows. Do not drive or work with dangerous machinery for one week after symptoms go away, in case the symptoms suddenly return. Take medicine as prescribed to relieve your symptoms. Unless another medicine was prescribed for nausea, vomiting and vertigo, you may use [id number] motion sickness pills, such as meclizine (Bonine, Bonamine, Antivert) or dimenhydrinate (Dramamine). Follow Up with your doctor or as directed by our staff. Tell the doctor if your ears keep ringing, or if your hearing does not return to normal. Get Prompt Medical Attention if any of the following occur: Vertigo gets worse and is not controlled by medicine prescribed Repeated vomiting not relieved by medicine prescribed Increased weakness or fainting Severe headache or unusually drowsy or confused Weakness of an arm or leg or one side of the face Difficulty with speech or vision You have been given the following additional information: Vertigo, Unspecified No driving or operating machinery while taking medication. Sedative medication was given during your visit. (Electronically signed by Nikolay Rivera MD 10/29/2016 15:50)
--- NOTE | 2016-10-29 15:51 | ED MAR SUMMARY ---
..... Medication Administration Record [facility] [address] [address] Patient: MARIA INES MURRAY Visit ID: [id number] 41y, M Weight: 97.5 kg Height/Length: 69 in BMI: 31.8 ALLERGIES: No Known Drug Allergy Given 17:35 10/28/2016 Beatriz Benjamin R.N. Medication Administered: ZOFRAN [IVP] (ONDANSETRON HCL), Dose: 4 mg IVP over 1 minute(s), Site: #1 left hand. Medication Ordered: Zofran IV 4 mg (NOW). Start 17:45 10/28/2016 Beatriz Benjamin R.N., Stop 19:47 10/28/2016 Brendan Leonard R.N. Medication Administered: IV NS (SALINE), Dose: IV Fluids, Rate: 999 mL/hr, Dispensed: 1000 mL bag, Site: #1 left hand. Medication Ordered: IV NS with Normal Saline 1 Liter: initial bolus none -, then 1000 mL/hr for X1 (NOW). Given 19:47 10/28/2016 Brendan Leonard R.N. Medication Administered: MECLIZINE [PO], Dose: 25 mg PO. Medication Ordered: Meclizine PO 25 mg (NOW). Given 20:20 10/28/2016 Brendan Leonard R.N. Medication Administered: ASPIRIN [PO], Dose: 325 mg PO. Medication Ordered: Aspirin PO 325 mg (NOW). Given 20:29 10/28/2016 rBendan Leonard R.N. Medication Administered: PROTONIX [IVP] (PANTOPRAZOLE SODIUM), Dose: 40 mg IVP over 10 minute(s), Site: #1 left hand. Medication Ordered: Protonix IVP 40mg 40 mg (Mix in NS 10ml over 2min). Start 22:54 10/28/2016 Brendan Leonard R.N. Medication Administered: ZITHROMAX [IVPB] (AZITHROMYCIN), Dose: 250 mg IVPB over 1 hour(s), Rate: 255 mL/hr, Dispensed: 250 mL bag, Site: #1 left hand. Medication Ordered: Zithromax IV 500 mg/250 mL (NOW).
--- NOTE | 2016-10-29 15:51 | ED MED RECONCILIATION SUMMARY ---
Patient: MARIA INES MURRAY Medication Reconciliation Report VisitID: [id number] [place] [address] 41y, M Registration Date/Time: 10/28/2016 Weight: 97.5 kg Height/Length: 69 in. BMI: 31.8 ALLERGIES: No Known Drug Allergy The patient's Home Medications are listed below: THE FOLLOWING MEDICATIONS NEED TO BE RECONCILED: Percocet Oral 5/325 mg, 4x a day, back pain Topiramate Oral The source(s) of the original Home Medication information: Not obtained. The following Medications were given to the patient in the Emergency Department: Zofran [IVP] IVP 4 mg, administered: 10/28/2016 5:35:00 PM IV NS IV Fluids bolus 0, then 999 mL/hr, administered: 10/28/2016 5:45:00 PM Meclizine [PO] PO 25 mg, administered: 10/28/2016 7:47:00 PM Aspirin [PO] PO 325 mg, administered: 10/28/2016 8:20:00 PM PROTONIX [IVP] IVP 40 mg, administered: 10/28/2016 8:29:00 PM Zithromax [IVPB] IVPB bolus 0, then 250 mg 255 mL/hr, administered: 10/28/2016 10:54:00 PM The following Medications were prescribed to the patient: None.
--- NOTE | 2016-10-29 15:51 | ED DISCHARGE INSTRUCTIONS ---
Patient: MARIA INES MURRAY General Instructions [facility] VisitID: [id number] [place] [address] 41y, M Registration Date/Time: 10/28/2016 Vertigo of unknown cause. INSTRUCTIONS No driving or operating machinery while taking medication. Sedative medication was given during your visit. ADDITIONAL INFORMATION Vertigo [Unknown Cause] The "inner ear" is located behind the middle ear. It is part of the balance center of your body. Disease of the inner ear causes vertigo -- a false feeling of motion. It feels as if you or the room is spinning. A vertigo attack may cause sudden nausea, vomiting and heavy sweating. Severe vertigo causes a loss of balance and can cause you to fall. During vertigo, small head movements and changes in body position will often make the symptoms worse. The causes of vertigo include: Inflammation of the inner ear Disease of the nerves to the inner ear Movement of calcium particles in the inner ear Poor blood flow to the balance centers of the brain An episode of vertigo may last seconds, minutes or hours. Once you are over the first episode, it may never return. However, sometimes symptoms may recur off and on over several weeks or longer, depending on the cause. There may be ringing in the ears or hearing loss, which may be temporary or permanent. Home Care: If symptoms are severe, rest quietly in bed. Change positions very slowly. There is usually one position that will feel best, such as lying on one side or lying on your back with your head slightly raised on pillows. Do not drive or work with dangerous machinery for one week after symptoms go away, in case the symptoms suddenly return. Take medicine as prescribed to relieve your symptoms. Unless another medicine was prescribed for nausea, vomiting and vertigo, you may use iilh-igu-yqkxgdb motion sickness pills, such as meclizine (Bonine, Bonamine, Antivert) or dimenhydrinate (Dramamine). Follow Up with your doctor or as directed by our staff. Tell the doctor if your ears keep ringing, or if your hearing does not return to normal. Get Prompt Medical Attention if any of the following occur: Vertigo gets worse and is not controlled by medicine prescribed Repeated vomiting not relieved by medicine prescribed Increased weakness or fainting Severe headache or unusually drowsy or confused Weakness of an arm or leg or one side of the face Difficulty with speech or vision You have been given the following additional information: Vertigo, Unspecified No driving or operating machinery while taking medication. Sedative medication was given during your visit. (Electronically signed by Nikolay Rivera MD 10/29/2016 15:50)
--- NOTE | 2016-10-30 13:40 | DISCHARGE SUMMARY ---
ADMIT DATE: 10/28/2016 DISCHARGE DATE: 10/29/2016 ADMITTING DIAGNOSIS: 1. Acute vertigo symptoms with nystagmus, vestibulitis versus possible cerebrovascular accident DISCHARGE DIAGNOSIS: 1. Acute left cerebellar cerebrovascular accident PROCEDURE: 1. The patient had a brain CT scan and brain CT angiogram done on admission while he was in the emergency department. 2. MRI scan done the following morning on 10/29/2016. BRIEF HISTORY: Please see the dictated history and physical exam from Dr. Steinberg for details concerning admission. HOSPITAL COURSE: The patient is a 41-year-old white male who developed sudden onset of dizziness and difficulty with his vision and difficulty with walking, to the point where he could hardly walk at all due to the dizziness and a feeling of some weakness on his right side. This all started around 4 p.m. after he had been taking a nap and woke up as these symptoms were developing. He came into [facility] Emergency Department and had quite pronounced nystagmus, with a slightly disconjugate gaze and a feeling of left facial numbness and right upper and lower extremity numbness, though he did not have profound weakness. He had no major cranial nerve abnormalities other than the nystagmus and somewhat disconjugate gaze. While he was in the emergency department, he had a brain CT scan done as well as a head CT angiogram. These were interpreted as being normal. The emergency room doctor and Dr. Steinberg were in contact with the [facility] and images were sent to them to review. They did not see any evidence of acute stroke and recommended conservative management with IV fluids and aspirin and continued observation. This course was followed. Over the next 12 hours, the patient remained the same from his admission to the acute care service at [facility]. He had a brain MRI scan done in the mid morning, 10/29/2016. This showed an acute left cerebellar infarct. Once this was identified, images were sent to the [facility], to Dr. Romero and Dr. Mcgill. The patient's physical exam did not really change at all. He was having difficulty swallowing and was kept n.p.o. and was on IV fluids with normal saline. He was maintained on pantoprazole IV to suppress stomach acid. He had been given aspirin 650 mg rectal suppository following his admission to the floor at [facility]. He was not able to take oral aspirin or other oral medications for fear of aspiration. His physical complaints did not change. He was able to be aroused easily and was alert and oriented x3. He continues to have nystagmus and a disconjugate gaze. He continued to have a numb feeling in the left facial area and the right arm and body and lower extremity. He had fairly normal muscle strength of the arms and legs without gross difference between the two. He was not able to stand and walk due to severe vertigo and a feeling of some weakness and loss of control of the right leg and right upper extremity. His vital signs remained stable, with blood pressures in the 120/60 70 range. He remained afebrile. DISCHARGE INSTRUCTIONS/MEDICATIONS: After the images were received by the [facility] and reviewed, the stroke center physicians, Dr. Romero and Dr. Mcgill felt the patient was a good candidate to be admitted to the stroke service at [facility]. Per their recommendations, the patient was transferred by ambulance to [facility] emergency department as recommended. He was maintained on IV fluids and maintained on an n.p.o. status. Images and records were sent with him. No other treatment was instituted other than the rectal suppository aspirin that he had been given in the supervisor capacitor processing hours of 10/29/2016. The case was discussed with his and other family members, who agreed with the transfer.
== END 2016-10-29 12:40 | disposition short-term general hospital (02) ==
LOC: ED SRH 17:15 → ACUTE2 SRH 22:15 → TRANS SRH 22:15 → ACUTE2 SRH 23:18
PROVIDERS: ADMIT Family Medicine
DX: I63.549 Cerebral infarction due to unspecified occlusion or stenosis of unspecified cerebellar artery (principal); H55.00 Unspecified nystagmus; R13.10 Dysphagia, unspecified; R20.0 Anesthesia of skin; R33.9 Retention of urine, unspecified
CPT/HCPCS: 29230; 29259; 29264; 83475; 85241; 90004; 90100; 90616; 91320; 92235; 92530; 92610; 93140; 94001; 94060; 95059